=== PATIENT | male | born 1955 | race Caucasian/White ===

== ENCOUNTER 2021-06-07 08:49 | Emergency (ER) | payer OTHER | END 2021-06-07 09:29 | disposition home or self-care (01) | LOC: FER 08:49 | DX: S09.90XA Unspecified injury of head, initial encounter (principal); W00.0XXA Fall on same level due to ice and snow, initial encounter; Y92.009 Unspecified place in unspecified non-institutional (private) residence as the place of occurrence of the external cause | CPT/HCPCS: 99283 ==